=== PATIENT | female | born 1965 | race Caucasian/White ===

== ENCOUNTER 2021-08-17 19:16 | Emergency (ER) | payer OTHER ==
[2021-08-17 19:24] VITALS: BP 142/89; PULSE 86; TEMP 97.8; BMI 30.1
== END 2021-08-17 20:00 | disposition home or self-care (01) ==
LOC: JER 19:16 → JERFT 19:16
DX: S63.502A Unspecified sprain of left wrist, initial encounter (principal); X50.0XXA Overexertion from strenuous movement or load, initial encounter
CPT/HCPCS: 73110-TC-LT-FY; 99283-25

== ENCOUNTER 2021-12-17 01:06 | Emergency (ER) | payer OTHER ==
[2021-12-17 02:16] VITALS: BP 142/91; PULSE 98; TEMP 98.9; BMI 30.1
== END 2021-12-17 03:58 | disposition home or self-care (01) ==
LOC: JER 01:06
DX: K08.89 Other specified disorders of teeth and supporting structures (principal)
CPT/HCPCS: 93005; 93010; 99283-25